=== PATIENT | female | born 1980 | race Caucasian/White ===

== ENCOUNTER → 2023-10-02 15:52 | Outpatient (REF) | payer OTHER, SELFPAY | LOC: RAD 15:52 | PROVIDERS: ATTENDING PHYSICIAN Nurse Practitioner Adult Health | DX: M25.551 Pain in right hip (principal); M25.552 Pain in left hip | CPT/HCPCS: 73522 ==

== ENCOUNTER → 2024-08-04 12:11 | Outpatient (REF) | payer OTHER, SELFPAY | LOC: HWRAD 12:11 | PROVIDERS: ATTENDING PHYSICIAN Internal Medicine | DX: R17 Unspecified jaundice (principal); D30.02 Benign neoplasm of left kidney | CPT/HCPCS: 76770 ==

== ENCOUNTER → 2024-08-28 13:20 | Outpatient (REF) | payer OTHER, SELFPAY | LOC: WDC 13:20 | PROVIDERS: ATTENDING PHYSICIAN Internal Medicine | DX: R17 Unspecified jaundice (principal); D30.02 Benign neoplasm of left kidney; Z12.31 Encounter for screening mammogram for malignant neoplasm of breast | CPT/HCPCS: 76700; 77063; 77067 ==

== ENCOUNTER → 2025-04-17 10:29 | Outpatient (REF) | payer OTHER, SELFPAY | LOC: DHVS 10:29 | PROVIDERS: ATTENDING PHYSICIAN Internal Medicine | DX: Z13.6 Encounter for screening for cardiovascular disorders (principal); Z82.49 Family history of ischemic heart disease and other diseases of the circulatory system | CPT/HCPCS: 76770 ==

== ENCOUNTER → 2025-06-29 17:36 | Outpatient (REF) | payer OTHER, SELFPAY | LOC: RAD 17:36 | PROVIDERS: ATTENDING PHYSICIAN Obstetrics & Gynecology; FAMILY PHYSICIAN Internal Medicine | DX: N92.6 Irregular menstruation, unspecified (principal) | CPT/HCPCS: 76830; 76856 ==